=== PATIENT | male | born 1990 | race African-American/Black ===

== ENCOUNTER 2022-08-23 06:38 | Emergency (ER) | payer MEDICAID ==
[~2022-08-23] VITALS: Ht 170.2 cm; Wt 70.4 kg
[~2022-08-23 06:38] MED LIST: LORA1TAB PO; NO HOME MEDS; ZOF4T PO
[2022-08-23 06:40] VITALS: BP 135/79
== END 2022-08-23 07:33 | disposition home or self-care (01) ==
LOC: ER 06:38
DX: S90.821A Blister (nonthermal), right foot, initial encounter (principal); M79.671 Pain in right foot; X58.XXXA Exposure to other specified factors, initial encounter; Y93.89 Activity, other specified; Y92.89 Other specified places as the place of occurrence of the external cause; Y99.8 Other external cause status
CPT/HCPCS: 99281